=== PATIENT | female | born 1980 | race Caucasian/White ===

== ENCOUNTER 2016-08-29 17:53 | Emergency (ER) | payer OTHER ==
[~2016-08-29] VITALS: Ht 167.6 cm; Wt 81.6 kg
[2016-08-29 19:30] VITALS: BP 112/84
== END 2016-08-29 19:30 | disposition home or self-care (01) ==
LOC: ED 17:53
DX: S93.491A Sprain of other ligament of right ankle, initial encounter (principal); X50.9XXA Other and unspecified overexertion or strenuous movements or postures, initial encounter; Y93.89 Activity, other specified; Y99.8 Other external cause status; Y92.89 Other specified places as the place of occurrence of the external cause

== ENCOUNTER 2016-10-21 21:40 | Emergency (ER) | payer OTHER ==
[2016-10-21 21:46] VITALS: BP 128/86
== END 2016-10-21 22:47 | disposition home or self-care (01) ==
LOC: ED 21:40
DX: S61.232A Puncture wound without foreign body of right middle finger without damage to nail, initial encounter (principal); W55.01XA Bitten by cat, initial encounter; Y93.89 Activity, other specified; Y99.8 Other external cause status; Y92.89 Other specified places as the place of occurrence of the external cause
CPT/HCPCS: 90715